=== PATIENT | female | born 1930 | race Caucasian/White ===

== ENCOUNTER → 2018-11-02 11:58 | Outpatient (CLI) | payer OTHER ==
[2015-04-18 08:49] VITALS: BMI 24.6
[~2018-11-02 11:58] MED LIST: CALCIUM 500 + D1 TAB PO; CRANBERRY475 MG PO; MULTI-DAY VITAM1 TAB PO; PRILOSEC20 MG PO; ZOLOFT50 MG PO
== END | disposition home or self-care (01) ==
LOC: D.RAD 11:58
PROVIDERS: ATTEND Family Medicine
DX: M54.32 Sciatica, left side (principal)

== ENCOUNTER → 2018-11-09 06:38 | Outpatient (CLI) | payer OTHER ==
[2015-04-18 08:49] VITALS: BMI 24.6
== END | disposition home or self-care (01) ==
LOC: D.MRI 06:38
PROVIDERS: ATTEND Family Medicine
DX: M48.8X6 Other specified spondylopathies, lumbar region (principal)

== ENCOUNTER → 2019-02-25 11:01 | Outpatient (CLI) | payer OTHER ==
[2015-04-18 08:49] VITALS: BMI 24.6
== END | disposition home or self-care (01) ==
LOC: D.US 11:01
PROVIDERS: ATTEND Family Medicine
DX: K21.9 Gastro-esophageal reflux disease without esophagitis (principal)

== ENCOUNTER → 2019-03-14 09:20 | Outpatient (CLI) | payer OTHER ==
[2015-04-18 08:49] VITALS: BMI 24.6
== END | disposition home or self-care (01) ==
LOC: D.MRI 03-10 10:00
PROVIDERS: ATTEND Family Medicine
DX: K76.9 Liver disease, unspecified (principal)

== ENCOUNTER → 2019-10-28 12:25 | Outpatient (CLI) | payer OTHER ==
[2015-04-18 08:49] VITALS: BMI 24.6
== END | disposition home or self-care (01) ==
LOC: D.MRI 12:25
PROVIDERS: ATTEND Family Medicine
DX: G45.9 Transient cerebral ischemic attack, unspecified (principal)